=== PATIENT | female | born 1995 | race Caucasian/White ===

== ENCOUNTER 2016-11-20 12:34 | Emergency (ER) | payer OTHER ==
[~2016-11-20] VITALS: Ht 162.6 cm; Wt 80.8 kg
[2016-11-20 12:38] VITALS: BP 136/81; PULSE 79; RESP 16; TEMP 97.9; O2SAT 98
[2016-11-20] MEDS ORDERED: ULTR50TA5 PO (13:07)
[2016-11-20] MEDS ORDERED: LIDO1GEL PR (13:07)
[2016-11-20] MEDS ORDERED: MILKSUS PO (13:07)
--- NOTE | 2016-11-20 13:13 | PD ---
HPI . Rectal pain Chief Complaint: GI Complaint Time Seen by Provider: 12:48 Travel History International Travel<30 days: No Contact w/Intl Traveler<30days: No Traveled to known affect area: No History of Present Illness HPI This patient presents with a one-year history of rectal pain. She states that the pain has become acutely worse over the last couple days. She states that she is having a hard time even passing gas secondary to pain. She does have an appointment to see a nutrition aides teacher tomorrow and today causing her to present to us. Pain is severe. It is now constant. It is exacerbated by stool and gas. PFSH Past Medical History Medical History: Denies Significant Hx Diminished Hearing: No Tetanus Vaccination: Unknown ?: Not LMP: LAST WEEK Past Surgical History Surgical History: No Previous Surgery Social History Alcohol Use: Yes (RARE) Tobacco Use: No Substance Use: No Allergies-Medications (Allergen,Severity, Reaction): Coded Allergies: No Known Allergies (Unverified , 11/20/16) Reported Meds & Prescriptions Reported Meds & Active Scripts Active Milk of Magnesia Liq (Magnesium Hydroxide) 400 Mg/5 Ml Susp 30 Ml PO BID PRN Ultram (Tramadol HCl) 50 Mg Tab 50 Mg PO Q4H PRN Lido Rx Topical (Lidocaine HCl) 3 % Jel [address] Q2HR Review of Systems Except as stated in HPI: all other systems reviewed are Neg Gastrointestinal: Positive: Other (rectal pain) Physical Exam Narrative GENERAL: Awake and alert and in no acute distress. SKIN: Warm and dry. HEAD: Atraumatic. Normocephalic. EYES: Pupils equal and round. NECK: Trachea midline. CARDIOVASCULAR: Regular rate and rhythm. RESPIRATORY: No accessory muscle use. RECTAL: No visible external hemorrhoid. She is not able to tolerate digital rectal exam because of severe pain. MUSCULOSKELETAL: No obvious deformities. No edema. NEUROLOGICAL: Awake and alert. No obvious cranial nerve deficits. Motor grossly within normal limits. Normal speech. PSYCHIATRIC: Appropriate mood and affect; insight and judgment normal. Data Data Last Documented VS Vital Signs Date Time Temp Pulse Resp B/P Pulse Ox O2 Delivery O2 Flow Rate FiO2 11/20/16 12:38 97.9 79 16 136/81 98 MDM Medical Decision Making Medical Screen Exam Complete: Yes Emergency Medical Condition: Yes Differential Diagnosis Differential diagnosis of rectal pain includes but is not limited to external hemorrhoid,, rectal foreign body, impaction Narrative Course Patient presents with severe rectal pain. Etiology of the rectal pain is unknown. She will be treated with Xylocaine jelly area I have expressed to her the importance of not becoming constipated. She is being placed on milk of magnesia daily to prevent constipation. She is to keep her follow-up appointment with gastroenterology tomorrow. Diagnosis Primary Impression: Rectal pain Referrals: PETTY MACHADO M.D. 1 day Patient Instructions: General Instructions, Rectal Pain (ED) Departure Forms: Tests/Procedures Scripts Magnesium Hydroxide Liq (Milk of Magnesia Liq)400 Mg/5 Ml Susp30 Ml PO BID PRN ( INDIGESTION OR UPSET STOMACH) #1 BOTTLE Ref 0 Prov:Khloe Padilla MD 11/20/16 Tramadol (Ultram)50 Mg Tab50 Mg PO Q4H PRN (PAIN) #12 TAB Ref 0 Prov:Khloe Padilla MD 11/20/16 Lidocaine Topical (Lido Rx Topical)3 % Jel1 Ml CT Q2HR #1 Prov:Khloe Padilla MD 11/20/16 Disposition: 01 DISCHARGE HOME Condition: Stable Khloe Padilla MD Nov 20, 2016 13:13
== END 2016-11-20 13:25 | disposition home or self-care (01) ==
LOC: PHED 12:34
DX: K62.89 Other specified diseases of anus and rectum (principal)
CPT/HCPCS: 99284